=== PATIENT | female | born 1965 | race Caucasian/White ===

== ENCOUNTER 2017-08-16 12:15 | Emergency (ER) | payer BC, OTHER ==
[2017-08-16 12:27] VITALS: BP 174/115
--- NOTE | 2017-08-16 12:34 | ED Physician Documentation ---
Lower Extremity Problem - HISTORIAN Historian: patient - HPI Stated Complaint: L knee pain Chief Complaint: Lower Extremity Problem (Left knee pain) Additional Information: Patient started to have pain to the left lateral/superior knee area. No precipitating factor noted. Patient had to work 18 hours on [employer] up on her feet all the time and symptom got a lot worse then. No history of trauma noted. No crepitus noted. Location of Injury: L knee Onset: days ago Timing: still present, worse Duration: constant Recent Injury: No Severity: moderate Quality: pain. denies: swelling, tenderness, numbness Exacerbated By: walking, other (weight bearing.) Relieved By: nothing Associated Symptoms: denies: chest pain, shortness of breath, rapid heart rate - ROS CONST: no problems GI/: none EYES/ENT: none NERUO/PSYCH: denies: headache - PAST HX Past History: none PE Risk Factors: none Surgeries/Procedures: Immunizations: referred to PCP Allergies/Adverse Reactions: Allergies Allergy/AdvReac Type Severity Reaction Status Date / Time No Known Allergies Allergy Verified 08/16/17 12:27 Home Medications: Ambulatory Orders Medication Instructions Recorded Lisinopril/Hydrochlorothiazide 10 mg PO DAILY 08/16/17 [Zestoretic] Tramadol HCl [Ultram] 50 mg PO Q6 PRN #30 tablet 08/16/17 - SOCIAL HX Smoking History: non-smoker Alcohol Use: none Drug Use: none - FAMILY HX Family History: no significant history - VITAL SIGNS Vital Signs: Vital Signs Temp Pulse Resp BP Pulse Ox 98.4 F 90 18 174/115 92 08/16/17 13:45 08/16/17 13:45 08/16/17 13:45 08/16/17 13:45 08/16/17 13:45 - REVIEWED ASSESSMENTS Nursing Assessment Reviewed: Yes Vitals Reviewed: Yes ED Results Lab/Radiology - Radiology Radiology Impressions: Examination: Plain film knee History: Knee discomfort Findings: 3 views of the knee demonstrates articular degenerative spurring. No fracture. No dislocation. No joint effusion. No soft tissue irregularity. Impression: Degenerative changes. No acute appearing osseous abnormality. - Orders Orders: ED Orders Category Date Time Status Knee Immobilizer 1T Care 08/16/17 13:50 Active KNEE 3 VIEWS [RAD] Stat Exams 08/16/17 Completed Lower Extremity Problem - EXAM General Appearance: mild distress Hips: bilateral hip: non-tender, normal inspection, normal range of motion, no evidence of injury Legs: bilateral: non-tender, normal inspection, normal range of motion, no evidence of injury Knees: right: non-tender, normal inspection, normal range of motion, no evidence of injury, left: pain (tender over the lateral aspect of knee), N/A: deformity (none), ecchymosis (mild anterior knee, old resolving), joint effusion (none) Ankle: bilateral: non-tender, normal inspection, normal range of motion, no evidence of injury DTR - Lower Extremities: knee (R): 2+, knee (L): 2+, ankle (R): 2+, ankle (L): 2 + Neuro/Tendon: normal sensation, normal motor functions, normal tendon functions RESPIRATORY: no resp distress, chest non-tender, breath sounds normal. No: wheezes, rales, rhonchi CVS: reg rate & rhythm, heart sounds normal, equal pulses, no murmur JOINT: joints nml NEURO/PSYCH: oriented X3, CN's nml as tested, motor nml, sensation nml, mood/ affect nml, cognition normal SKIN: warm/dry Discharge Clincal Impression: Knee abrasion Qualifiers: Encounter type: initial encounter Laterality: left Qualified Code(s): S80.212A - Abrasion, left knee, initial encounter Prescriptions: Tramadol HCl [Ultram] 50 mg PO Q6 PRN #30 tablet PRN Reason: Pain Referrals: Primary Doctor,No [Primary Care Provider] - 2 Days Additional Instructions: Wear straight knee immobilizer for comfort measures. Take ibuprofen (200mg tab) 2-3 tablets with food every 6 hours as needed for pain or take Alve (220mg tablets) two tablets every 12 hours with food as needed for pain. Keep the knee elevated with some cool/warm compress. If symptoms do not improve to follow up with your primary care provider. Take Tramadol as needed for pain with food. Condition: Stable Disposition: 01 HOME, SELF-CARE Decision to Admit: NO Date of Decison to Admit: 08/16/17 Decision Time: 13:47
--- NOTE | 2017-08-16 14:39 | Diagnostic Imaging Report ---
HERMILA STARR [facility] [address] [facility] [address] [address] Report Submission Date: Aug 16, 2017 1:34:25 PM SUPERVISOR MAPPING Patient Study Name: MADELIN HE Date: Aug 16, 2017 1:23:31 PM SUPERVISOR MAPPING Modality Type: CR Gender: F Description: LOWER EXTREMITY : 61 Institution: [facility] Physician: HERMILA STARR Examination: Plain film knee History: Knee discomfort Findings: 3 views of the knee demonstrates articular degenerative spurring. No fracture. No dislocation. No joint effusion. No soft tissue irregularity. Impression: Degenerative changes. No acute appearing osseous abnormality. Electronically signed on Aug 16, 2017 1:34:25 PM SUPERVISOR MAPPING by: Giovani MONTES DE OCA
== END 2017-08-16 13:45 | disposition home or self-care (01) ==
LOC: ED 12:15
DX: M25.562 Pain in left knee (principal)
CPT/HCPCS: 73562; L1830

== ENCOUNTER 2018-09-26 10:38 | Outpatient (CLI) | payer BC ==
--- NOTE | 2018-09-26 13:03 | Diagnostic Imaging Report ---
SANDRA FAROOQ [facility] [address] [facility] [address] Report Submission Date: Sep 26, 2018 12:24:53 PM THEATER USHER Patient Study Name: MADELIN HE Date: Sep 26, 2018 10:44:47 AM THEATER USHER Modality Type: DX Gender: F Description: BILAT HANDS 3 VIEW : 61 Institution: [facility] Physician: SANDRA FAROOQ Examination: Plain film hands History: BILATERAL HAND PAIN Comparison exams: None available Findings: 3 views of the right and left hands demonstrate normal cortical margins. No fracture. No dislocation. No soft tissue abnormality. Impression: No acute appearing osseous abnormality Electronically signed on Sep 26, 2018 12:24:53 PM THEATER USHER by: Giovani MONTES DE OCA
== END 2018-09-26 10:40 ==
LOC: LAB 10:38
PROVIDERS: ATTEND Family Medicine
DX: M79.641 Pain in right hand (principal); M79.642 Pain in left hand